=== PATIENT | female | born 1965 | race Caucasian/White ===

== ENCOUNTER 2016-11-20 12:08 | Emergency (ER) | payer OTHER ==
[2016-11-20 11:54] LABS: INFLUENZA A NEG (NEG); INFLUENZA B NEG (NEG)
[~2016-11-20 12:08] MED LIST: IBUPROFEN800 MG PO
== END 2016-11-20 12:14 | disposition home or self-care (01) ==
LOC: SED 12:08
PROVIDERS: Nurse Practitioner
DX: J06.9 Acute upper respiratory infection, unspecified (principal); G43.909 Migraine, unspecified, not intractable, without status migrainosus; F17.210 Nicotine dependence, cigarettes, uncomplicated; Z98.51 Tubal ligation status
CPT/HCPCS: 87651; 87804; 99283